=== PATIENT | male | born 1950 | race Two or more races ===

== ENCOUNTER → 2024-05-03 | Outpatient (CLI) | payer BC, SELFPAY ==
[2024-05-03 08:29] LABS: Basophils # (Auto) 0.1 Thou/mm3 (0.0-0.2); Basophils % (Auto) 1 % (0-2.5); Eosinophils # (Auto) 0.2 Thou/mm3 (0.0-0.5); Eosinophils % (Auto) 3 % (0-10); Hematocrit 46.7 % (41.0-53.0); Hemoglobin 14.7 g/dL (13.5-16.0); Immature Granulocytes % (Auto) 0 % (0-0); Immature Granulocytes Auto 0.03 Thou/mm3 (0.00-0.00); Lymphocytes # (Auto) 1.1 Thou/mm3 (1.0-4.8); Lymphocytes % (Auto) 15 % (10-50); Mean Corpuscular HGB Conc 31.5 g/dl (31.0-37.0); Mean Corpuscular Hemoglobin 25.8 pg (25.0-35.0); Mean Corpuscular Volume 82 fL (80-100); Monocytes # (Auto) 0.7 Thou/mm3 (0.0-0.8); Monocytes % (Auto) 9 % (0-12); Neutrophils # (Auto) 5.6 Thou/mm3 (1.8-7.7); Neutrophils % (Auto) 73 % (37-80); Nucleated Red Blood Cell % 0 /100 WBC (0); Platelet Count 216 Thou/mm3 (140-440); RDW Standard Deviation 38.9 fL (35.1-43.9); Red Blood Count 5.69 Miln/mm3 (4.50-5.90); White Blood Count 7.7 Thou/mm3 (3.8-10.6)
[2024-05-03 08:40] LABS: Glucose Estimated Average 114 mg/dL (80-131); Hemoglobin A1C 5.6 % Hgb (4.8-6.0)
[2024-05-03 08:54] LABS: Alanine Aminotransferase 23 U/L (10-49); Albumin, Serum 4.6 gm/dL (3.4-4.8); Albumin/Globulin Ratio 2.1 (1.2-2.2); Alkaline Phosphatase 114 U/L (46-116); Anion Gap 5 (7-16); Aspartate Amino Transferase 25 U/L (0-34); BUN/Creatinine Ratio 14 Ratio (12-20); Bilirubin,Total 0.7 mg/dL (0.3-1.2); Blood Urea Nitrogen 17 mg/dL (9-23); Carbon Dioxide 27.7 mMol/L (20.0-31.0); Cardiac Risk Estimate 2.9 RATIO (4.0-6.7); Chloride 108 mMol/L (98-107); Cholesterol 123 mg/dL (132-200); Creatinine (Component) 1.2 mg/dL (0.6-1.3); Globulin 2.2 gm/dL (2.3-3.5); Glucose 101 mg/dL (74-106); HDL Cholesterol 43 mg/dL (40-60); LDL Cholesterol,Calculated 68 mg/dL (0-130); Osmolality,Calculated 282 (275-295); Potassium 5.2 mMol/L (3.4-5.1); Sodium 141 mMol/L (136-145); Thyroid Stimulating Hormone 3.24 uIU/mL (0.55-4.78); Total Protein 6.8 gm/dL (5.7-8.2); Triglycerides 60 mg/dL (30-150); eGFR > 60 See Note
== END | disposition home or self-care (01) ==
LOC: COPL 07:08
PROVIDERS: PCP Specialist; Referring Provider Specialist; Visit Provider Specialist
DX: I25.810 Atherosclerosis of coronary artery bypass graft(s) without angina pectoris (principal); Z51.11 Encounter for antineoplastic chemotherapy
CPT/HCPCS: 36415; 80053; 80061; 83036; 84439; 84443; 85025

== ENCOUNTER 2024-10-28 17:42 | Emergency (ER) | payer BC, SELFPAY ==
--- NOTE | 2024-10-28 17:50 | EKG_ITS ---
[facility] Test Date: 2024-10-28 Pat Name: NAEEM EMMANUEL Department: Room: - Gender: Male [employer]: : 1950 Requested By: ED Temporary Provider Order Number: [id number] Reading MD: ED Temporary Provider Measurements Intervals Lorraine Rate: 61 P: 24 [place]: 161 QRS: 45 QRSD: 89 T: 76 QT: 420 QTc: 426 Interpretive Statements SINUS RHYTHM No previous ECG available for comparison /store/S0/[id number].pdf
--- NOTE | 2024-10-28 17:54 | XR_ITS ---
Examination: PA lateral chest 2 views TECHNIQUE: Upright PA and lateral chest 2 views Date and time: 2024 1812 hours Comparison 01/28/2017 INDICATIONS: Epigastric pain radiating to the days ago. FINDINGS: Normal heart size. CABG Moderate hyperexpansion Left anterior descending coronary artery stent No pneumonia or pulmonary edema Prominent osteopenia IMPRESSION: Moderate hyperexpansion No pneumonia or pulmonary edema
--- NOTE | 2024-10-28 17:55 | PC.NURSE ---
C/O CHEST PAIN SINCE 1300 TODAY AND HX CHEST PAIN
[2024-10-28 18:02] VITALS: BP 153/82; PULSE 62; RESP 17; TEMP 36.7; O2SAT 100; BMI 24.5
[2024-10-28 18:27] VITALS: BP 153/82; PULSE 60; RESP 18; TEMP 36.6; O2SAT 100
--- NOTE | 2024-10-28 18:32 | PD.EDCHEST ---
ED Chest Pain RME/HPI General Chief Complaint: Chest Pain Stated Complaint: CHEST PAIN Time Seen by Provider: 10/28/24 17:53 Arrival date/time: 10/28/24 17:42 RME / HPI RME / HPI narrative: 74-year-old male with history of coronary artery disease presents the emergency department with persistent epigastric pain since around 2 AM. He denies positional pleuritic nature to the pain. He describes as a cramp or ache that radiates to the bilateral lower chest. He ate a edgar for lunch without change in the pain (neither improved or worsen). He denies fevers chills or sweats. He denies nausea vomiting or diarrhea. Related Data Home Medications ?Medication ?Instructions ?Recorded ?Confirmed atorvastatin 40 mg tablet (Lipitor) 80 mg PO HS #0 tabs 07/24/13 lisinopril 10 mg tablet 10 mg PO HS ##0 07/24/13 metoprolol succinate 25 mg 25 mg PO QDAY ##0 07/24/13 tablet,extended release 24 hr (Toprol XL) aspirin 81 mg chewable tablet 81 mg PO QDAY ##0 01/28/17 prasugrel HCl 10 mg tablet 10 mg PO QDAY #0 tabs 01/28/17 (Effient) Allergies Allergy/AdvReac Type Severity Reaction Status Date / Time Sulfa (Sulfonamide Allergy Unknown Verified 01/31/17 08:14 Antibiotics) Review of Systems Review of Systems Systems Reviewed: All systems reviewed, normal except as documented ED Exam Narrative Physical exam: GENERAL APPEARANCE: AxOx4, generally well-appearing, no acute distress. HEENT: NC, AT. MMM. EOMI, clear conjunctiva, oropharynx clear. NECK: Supple without lymphadenopathy. No stiffness or restricted ROM. HEART: Normal rate and regular rhythm, normal S1/S1, no m/r/g LUNGS: CTAB, moving air well. No crackles or wheezes are heard. ABDOMEN: Soft, nontender, nondistended with good bowel sounds heard. BACK: No midline C/T/L spine pain or deformity, No CVAT, no obvious deformity. EXTREMITIES: Without cyanosis, clubbing or edema. MUSCULOSKELETAL: FROM of all major joints, no chest tenderness NEUROLOGICAL: Grossly nonfocal. Alert and oriented, moving all 4 extremities. CN not formally tested but appear grossly intact. Observed to ambulate with normal gait. Skin: Warm and dry without any rash. Course Quality Measures none Orders Category Date Time Status EKG (ED ONLY) *Do not use* NOW Care 10/28/24 17:50 Completed EKG (ED Only) Stat Exams 10/28/24 17:50 Draft XR chest 2V Stat Exams 10/28/24 17:54 Completed BNP [B-Type Natriuretic Peptide] Stat Lab 10/28/24 18:29 Ordered CBC Stat Lab 10/28/24 17:55 Completed CMP [Comprehensive Metabolic Panel] Stat Lab 10/28/24 17:55 Completed Free T4 (Free Thyroxine) Stat Lab 10/28/24 18:29 Ordered Lipase Stat Lab 10/28/24 17:55 Completed Magnesium Stat Lab 10/28/24 18:29 Ordered TSH [Thyroid Stimulating Hormone] Stat Lab 10/28/24 18:29 Ordered Troponin I Stat Lab 10/28/24 17:55 Completed Troponin I Stat Lab 10/28/24 18:29 Ordered Aspirin Chew Med 10/28/24 18:25 Discontinued 324 mg PO X1 ONE Nitroglycerin [Nitrostat 1/150] Med 10/28/24 18:25 Discontinued 0.4 mg SL X1 ONE Vital Signs Vital signs: Vital Signs Temperature 98.1 F 10/28/24 18:02 Pulse Rate 62 10/28/24 18:02 Respiratory Rate 17 10/28/24 18:02 Blood Pressure 153/82 H 10/28/24 18:02 Pulse Oximetry (%) 100 10/28/24 18:02 Oxygen Delivery Method Room Air 10/28/24 18:02 SpO2 100% on room air, patient is not hypoxic Chest Pain MDM Narrative MDM Narrative:: 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 Exam is otherwise benign. Cardiac workup and upper abdominal workup has been initiated and patient has been signed off to the oncoming provider pending results and final disposition. Patient data External records reviewed:: [facility] previous records Clinical information provided by:: patient Social determinants that could affect healthcare access:: none Patient has the following chronic illnesses:: Coronary artery disease How is presenting disease/condition affected by chronic disease/condition?: exacerbated by Evaluation data The following diagnostics were reviewed and interpreted by me:: other (specify) Lab and/or radiology exams considered but not ordered:: As per narrative Interpretation Summary: As per narrative Medications / Prescriptions Medications or Prescriptions considered but not ordered:: As per narrative Medication administrations:: Medication Administration History Discontinued Medications Aspirin (Aspirin 81 Mg Chew) 324 mg PO X1 ONE Stop: 10/28/24 18:26 Nitroglycerin (Nitroglycerin 0.4 Mg Subl Btl #25) 0.4 mg SL X1 ONE Stop: 10/28/24 18:26 Above Consultations Consultation(s) initiated? (list below): No Diagnosis Chest Pain Differential Diagnosis: stable angina, atypical chest pain, st elevation myocardial infarction, chest pain and biliary colic Most likely diagnosis given after review of the tests above:: Workup pending Admission Indicated Admission indicated?: not indicated Explain why admission is indicated or not indicated:: Workup pending Admission Request Was there a request for admission?: No Admission Attestation Admission request attestation: Workup pending Disposition Plan Disposition Plan: other (specify) (Workup pending) Discharge Plan Plan Discharge Disposition comment: Patient is stable condition on signout Prescriptions/Referrals Prescriptions/Med Rec: No Action atorvastatin [Lipitor] 40 MG tablet 80 mg PO HS Qty: 0 lisinopril 10 MG tablet 10 mg PO HS Qty: 0 metoprolol succinate [Toprol XL] 25 MG tablet extended release 24 hr 25 mg PO QDAY Qty: 0 prasugrel HCl [Effient] 10 MG tablet 10 mg PO QDAY Qty: 0 aspirin 81 MG tablet,chewable 81 mg PO QDAY Qty: 0 Referrals: No Primary/Family,Physician [Primary Care Provider] - In 1 week Problem List Clinical Impression: Epigastric cramping, Coronary artery disease Patient/Caregiver Discharge Instructions Print Language: Chinese
--- NOTE | 2024-10-28 18:33 | PD.EDADDENDU ---
Emergency Room Addendum <Pricilla Lawson - Last Filed: 10/28/24 23:20> Addendum Narrative: I took over the care from Dr. Moss at 6 PM on 10/28/2024, see his notes for complete H&P and ED course. I was asked to take over the patient pending work-up. I reviewed all diagnostic test results. My interpretation of the EKG is sinus rhythm with no acute ST-T changes. My interpretation of the chest x-ray is unremarkable. My review of the US gallbladder report is cholelithiasis. My review of the CT abdomen pelvis report is acute calculus cholecystitis. Blood tests are remarkable for WBC 11.4, Total Bilirubin 1.8, AST 78, ALT 54, Alkaline Phosphatase 117. At this point, diagnoses include cholelithiasis. Treatment here included NS, Protonix, Nitroglycein, Aspirin, and Pepcid. Significant improvement noted. Based on my best medical judgment, made decision no further evaluation or treatment indicated at this time. Patient understands and agrees to the discharge instructions customized and printed, see below. Discharge Instructions from Dr. Tamayo printed for you: 1. After extensive evaluation, there is no life-threatening condition. Such as heart attack. 2. The ultrasound showed cholelithiasis and CT scan showed cholecystitis and signs of cystitis. 3. As you requested, urinalysis was not performed, we did not pursue admission/surgery here, and no medications were prescribed. 4. See a private doctor on 10/29/2024 for recheck and further care. Ask to review all test results and official radiology reports, to make sure you receive all necessary follow-ups and monitoring. To make sure there is no serious underlying heart condition, ask to help you get more tests for your heart that cannot be done here in the ER. Such as Holter Monitor (cardiac monitoring at home from a day to even a month), heart stress test (on treadmill or with medication), echocardiogram (imaging of your heart structures), heart catherization (checking for blockages in your heart arteries), and a referral to see a Senior Treasury Consultant. Ask for help seeing a surgeon for possible elective cholecystectomy. 5. Seek immediate medical care with worsening or with any concerns. Drake Tamayo MD <Drake Tamayo MD - Last Filed: 10/28/24 23:24> Addendum Narrative: I took over the care from Dr. Moss at 6 PM on 10/28/2024, see his notes for complete H&P and ED course. I reviewed all diagnostic test results. My interpretation of the EKG is sinus rhythm with no acute ST-T changes. My interpretation of the chest x-ray is unremarkable. My review of the US gallbladder report is cholelithiasis. My review of the CT abdomen pelvis report is acute calculus cholecystitis. Blood tests are remarkable for WBC 11.4, Total Bilirubin 1.8, AST 78, ALT 54, Alkaline Phosphatase 117. At this point, diagnoses include cholelithiasis. Treatment here included NS, Protonix, Nitroglycein, Aspirin, and Pepcid. Significant improvement noted. Patient declined giving urine specimen for urinalysis, pursuing admission/surgery here, and medications for home. Based on my best medical judgment, made decision no further evaluation or treatment indicated at this time. Patient understands and agrees to the discharge instructions customized and printed, see below. Discharge Instructions from Dr. Tamayo printed for you: 1. After extensive evaluation, there is no life-threatening condition. Such as heart attack. 2. The ultrasound showed cholelithiasis and CT scan showed cholecystitis and signs of cystitis. 3. As you requested, urinalysis was not performed, we did not pursue admission/surgery here, and no medications were prescribed. 4. See a private doctor on 10/29/2024 for recheck and further care. Ask to review all test results and official radiology reports, to make sure you receive all necessary follow-ups and monitoring. To make sure there is no serious underlying heart condition, ask to help you get more tests for your heart that cannot be done here in the ER. Such as Holter Monitor (cardiac monitoring at home from a day to even a month), heart stress test (on treadmill or with medication), echocardiogram (imaging of your heart structures), heart catherization (checking for blockages in your heart arteries), and a referral to see a Senior Treasury Consultant. Ask for help seeing a surgeon for possible elective cholecystectomy. 5. Seek immediate medical care with worsening or with any concerns. Drake Tamayo MD
[2024-10-28 18:34] LABS: Basophils # (Auto) 0.1 Thou/mm3 (0.0-0.2); Basophils % (Auto) 0 % (0-2.5); Eosinophils % (Auto) 0 % (0-10); Hematocrit 44.7 % (41.0-53.0); Immature Granulocytes % (Auto) 0 % (0-0); Immature Granulocytes Auto 0.05 Thou/mm3 (0.00-0.00); Lymphocytes # (Auto) 0.6 Thou/mm3 (1.0-4.8); Lymphocytes % (Auto) 5 % (10-50); Mean Corpuscular HGB Conc 33.6 g/dl (31.0-37.0); Mean Corpuscular Hemoglobin 26.3 pg (25.0-35.0); Mean Corpuscular Volume 78 fL (80-100); Monocytes # (Auto) 0.5 Thou/mm3 (0.0-0.8); Monocytes % (Auto) 5 % (0-12); Neutrophils # (Auto) 10.2 Thou/mm3 (1.8-7.7); Neutrophils % (Auto) 89 % (37-80); Nucleated Red Blood Cell % 0 /100 WBC (0); Platelet Count 193 Thou/mm3 (140-440); RDW Standard Deviation 36.4 fL (35.1-43.9); White Blood Count 11.4 Thou/mm3 (3.8-10.6)
[2024-10-28 18:46] LABS: Alanine Aminotransferase 54 U/L (10-49); Albumin, Serum 4.3 gm/dL (3.4-4.8); Albumin/Globulin Ratio 1.8 (1.2-2.2); Alkaline Phosphatase 117 U/L (46-116); Anion Gap 13 (7-16); Aspartate Amino Transferase 78 U/L (0-34); BUN/Creatinine Ratio 14 Ratio (12-20); Bilirubin,Total 1.8 mg/dL (0.3-1.2); Blood Urea Nitrogen 14 mg/dL (9-23); Calcium 9.4 mg/dL (8.3-10.6); Calcium (Corrected) 9.4 mg/dL (8.5-10.1); Carbon Dioxide 26.4 mMol/L (20.0-31.0); Chloride 103 mMol/L (98-107); Estimated Creatinine Clearance 50.1 mL/min (>60); Globulin 2.4 gm/dL (2.3-3.5); Glucose 116 mg/dL (74-106); Lipase 52 U/L (12-53); Osmolality,Calculated 284 (275-295); Sodium 142 mMol/L (136-145); Total Protein 6.7 gm/dL (5.7-8.2); Troponin I < 0.002 ng/mL (0.0-0.045); eGFR > 60 See Note
[2024-10-28 19:12] LABS: Free T4 (Free Thyroxine) 1.39 ng/dL (0.89-1.76); Magnesium 1.9 mg/dL (1.6-2.6); Thyroid Stimulating Hormone 3.08 uIU/mL (0.55-4.78)
[2024-10-28 19:37] LABS: B-Type Natriuretic Peptide 38 pg/mL (0-100)
--- NOTE | 2024-10-28 20:02 | PC.NURSE ---
Assumed care of pt. Pt states he has abdominal pain, denies chest pain. Pt refused nitro/asa. Informed MD Tamayo. to see pt.
--- NOTE | 2024-10-28 20:23 | XR_ITS ---
Examination: Abdomen sonogram, Limited Date and time of exam: October 28, 20240 hours INDICATIONS: Right upper abdominal pain beginning today Technique: Real-time anders scale transabdominal sonographic images of the upper abdomen obtained. Findings: Multiple gallstones Normal gallbladder wall Common bile duct 0.7 cm no stones Pancreatic head to 0.2 cm Liver 11.2 cm fatty infiltration Normal hepatopedal portal venous flow Patent IVC IMPRESSION: Cholelithiasis, negative for cholecystitis
--- NOTE | 2024-10-28 20:24 | XR_ITS ---
Examination: CT abdomen with intravenous contrast CT pelvis with intravenous contrast 2-D coronal reconstructions 2-D sagittal reconstructions Date and time of exam:October 28, 2024 2154 hours INDICATIONS: Onset abdominal pain today. CTDI: vol (mGy) 7 DLP: (mGycm) 437 Technique: Multiple axial sections of the abdomen and pelvis have been obtained. 64 slice high-resolution scanner used. 3 mm axial sections have been obtained, post intravenous injection 60 cc [id number] 2-D sagittal, coronal reconstructions obtained. Low dose protocols were performed. One or more of the following dose reduction techniques were used; automated exposure control, adjustment of the mA and/or KV according to patient size, use of iterative reconstruction technique. Findings: No focal liver or splenic lesion Gallbladder wall appears thickened, gallstones No pancreatic or adrenal mass Aorta normal size No hydronephrosis No bowel obstruction No renal or ureteral calculi No diverticulitis No pericecal inflammatory change Moderate prostatomegaly Urinary bladder wall thickening up to 4 mm IMPRESSION: Acute calculus cholecystitis Mild urinary bladder wall thickening, consider early urinary tract outflow obstruction secondary to prostatomegaly, cystitis
[2024-10-28] MEDS: PANTOPRAZOLE INJ 40 MG VIAL IVP (20:48)
[2024-10-28] MEDS: SODIUM CHLORIDE 0.9% 1000 ML 1,000 ML 999 ML IV (20:49)
[2024-10-28] MEDS: FAMOTIDINE INJ 10 MG/ML VIAL 2 ML 20 MG IVP (20:49)
[2024-10-28 20:55] VITALS: BP 181/71; PULSE 55; RESP 16; O2SAT 98
[2024-10-28 21:37] VITALS: BP 134/70; PULSE 48; RESP 16; TEMP 36.4; O2SAT 96
--- NOTE | 2024-10-28 21:52 | PC.NURSE ---
Pt to CT.
[2024-10-28 23:27] VITALS: BP 137/65; PULSE 58; RESP 20; TEMP 36.8; O2SAT 98
== END 2024-10-28 23:28 | disposition home or self-care (01) ==
PROVIDERS: Emergency Medicine; Emergency Provider Emergency Medicine
DX: K80.00 Calculus of gallbladder with acute cholecystitis without obstruction (principal); I25.10 Atherosclerotic heart disease of native coronary artery without angina pectoris
CPT/HCPCS: 36415; 71046; 74177; 76705; 80053; 81001; 83690; 83735; 83880; 84439; 84443; 84484; 85025; 93005; 96361; 96374; 96375; 99285; A4649; J2470; J3490; J7030; Q9967

== ENCOUNTER → 2024-11-17 | Outpatient (CLI) | payer BC, SELFPAY ==
[2024-11-17 07:38] LABS: Alanine Aminotransferase 26 U/L (10-49); Albumin, Serum 4.5 gm/dL (3.4-4.8); Alkaline Phosphatase 118 U/L (46-116); Aspartate Amino Transferase 30 U/L (0-34); Bilirubin,Direct 0.3 mg/dL (0.0-0.3); Bilirubin,Total 0.9 mg/dL (0.3-1.2); Cardiac Risk Estimate 2.5 RATIO (4.0-6.7); Cholesterol 112 mg/dL (132-200); HDL Cholesterol 44 mg/dL (40-60); LDL Cholesterol,Calculated 52 mg/dL (0-130); Total Protein 6.9 gm/dL (5.7-8.2); Triglycerides 81 mg/dL (30-150)
== END | disposition home or self-care (01) ==
PROVIDERS: PCP Specialist; Referring Provider Internal Medicine Cardiovascular Disease; Visit Provider Internal Medicine Cardiovascular Disease
DX: I25.118 Atherosclerotic heart disease of native coronary artery with other forms of angina pectoris (principal); Z95.1 Presence of aortocoronary bypass graft; E78.01 Familial hypercholesterolemia
CPT/HCPCS: 36415; 80061; 80076

== ENCOUNTER 2024-11-18 06:00 | Day surgery (SDC) | payer BC, SELFPAY ==
[2024-11-17 06:24] VITALS: BMI 24.5
[2024-11-17 07:23] LABS: Basophils # (Auto) 0.1 Thou/mm3 (0.0-0.2); Basophils % (Auto) 1 % (0-2.5); Eosinophils # (Auto) 0.2 Thou/mm3 (0.0-0.5); Eosinophils % (Auto) 4 % (0-10); Hematocrit 44.3 % (41.0-53.0); Hemoglobin 14.7 g/dL (13.5-16.0); Immature Granulocytes % (Auto) 0 % (0-0); Immature Granulocytes Auto 0.03 Thou/mm3 (0.00-0.00); Lymphocytes # (Auto) 1.1 Thou/mm3 (1.0-4.8); Lymphocytes % (Auto) 17 % (10-50); Mean Corpuscular HGB Conc 33.2 g/dl (31.0-37.0); Mean Corpuscular Hemoglobin 26.5 pg (25.0-35.0); Mean Corpuscular Volume 80 fL (80-100); Monocytes # (Auto) 0.6 Thou/mm3 (0.0-0.8); Monocytes % (Auto) 9 % (0-12); Neutrophils # (Auto) 4.8 Thou/mm3 (1.8-7.7); Neutrophils % (Auto) 70 % (37-80); Nucleated Red Blood Cell % 0 /100 WBC (0); Platelet Count 210 Thou/mm3 (140-440); RDW Standard Deviation 36.5 fL (35.1-43.9); Red Blood Count 5.54 Miln/mm3 (4.50-5.90); White Blood Count 6.9 Thou/mm3 (3.8-10.6)
[2024-11-17 07:38] LABS: Alanine Aminotransferase 26 U/L (10-49); Albumin, Serum 4.6 gm/dL (3.4-4.8); Alkaline Phosphatase 119 U/L (46-116); Anion Gap 5 (7-16); Aspartate Amino Transferase 31 U/L (0-34); BUN/Creatinine Ratio 12 Ratio (12-20); Bilirubin,Total 0.9 mg/dL (0.3-1.2); Blood Urea Nitrogen 12 mg/dL (9-23); Calcium 9.8 mg/dL (8.3-10.6); Calcium (Corrected) 9.8 mg/dL (8.5-10.1); Carbon Dioxide 30.3 mMol/L (20.0-31.0); Chloride 105 mMol/L (98-107); Estimated Creatinine Clearance 50.1 mL/min (>60); Globulin 2.3 gm/dL (2.3-3.5); Glucose 108 mg/dL (74-106); Osmolality,Calculated 280 (275-295); Potassium 4.6 mMol/L (3.4-5.1); Sodium 140 mMol/L (136-145); Total Protein 6.9 gm/dL (5.7-8.2); eGFR > 60 See Note
[2024-11-17 07:43] LABS: Prothrombin Time 11.3 Seconds (9.0-12.2)
[2024-11-18] VITALS (10 sets, daily range): BP systolic 131–167; BP diastolic 45–75; PULSE 50–65; RESP 12–20; TEMP 36.2–36.4; O2SAT 97–100; BMI 24.7
[2024-11-18] MEDS: RINGERS LACTATED 1000 ML 1,000 ML 20 ML IV (07:14)
--- NOTE | 2024-11-18 08:27 | PD.SUROPNT ---
Date of Procedure 11/18/24 Pre Op Diagnosis Symptomatic cholelithiasis Post Op Diagnosis Cholelithiasis with cholecystitis Procedure Laparoscopic cholecystectomy Findings Moderately distended gallbladder with multiple gallstones and chronic cholecystitis. Epigastric adhesions from previous hernia operation Procedure Description Patient was brought into the operating room in supine position. After administration of general endotracheal anesthesia abdomen was prepped and draped in standard surgical manner. A Veress needle was inserted through the umbilicus and pneumoperitoneum was obtained up to 15 mmHg. The Veress needle was then removed, a 5 mm infraumbilical incision was made and the 5mm trocar was inserted. Laparoscopic camera was placed. Patient was noted to have omental and loops of small bowel adherent in epigastric area from previous hernia operation. Under direct visualization a laparoscopic camera a 10 mm trocar was placed in subxiphoid away from the adhesions and two 5 mm trocars placed in right upper quadrant. The gallbladder was identified and was noted to be moderately distended with multiple gallstones and chronic cholecystitis. It was retracted cephalad and laterally. Dissection started near the infundibulum of gallbladder where cystic duct and gallbladder junction clearly identified. The cystic duct was circumferentially dissected off the peritoneum and surrounding inflammatory tissue. The critical view of safety was clearly demonstrated. Cystic duct was then divided between 2 endoclips proximally and one distally. The cystic artery was similarly dissected and divided. The gallbladder was then from the liver bed using electrocautery. The gallbladder was then placed inside an Endo Catch and removed from the abdomen utilizing subxiphoid trocar site. The area was copiously and thoroughly washed and irrigated, all the fluid was suctioned and the suction fluid returned clear. Hemostasis achieved using electrocautery. Endoclips noted be in place and intact without any bleeding or any leakage. Hemostasis was adequate and satisfactory. The subxiphoid trocar sites fascial defect was closed with 0 Vicryl using Endo Closure device. Instruments and trocars removed, pneumoperitoneum was evacuated and the incisions closed with 4-0 Monocryl in subcuticular fashion. Instrument needle and sponge counts were all reported to be correct X2. Patient tolerated the procedure well, was extubated, breathing spontaneously and without difficulty and was transferred to postanesthesia care in stable condition. Anesthesia GETA and local Pathology / specimen Other (Gallbladder and contents) Estimated Blood Loss 10 Condition Stable Disposition PACU Surgeon Kanchan Rick MD Surgical Staff Operation Date: 11/18/24 07:30 Case Staff Anesthesiologist: Tru Aguilera RN First Assistant: Jackie Scruggs
--- NOTE | 2024-11-18 08:31 | SUR.PHASEI ---
pt received from OR in recovery bay 1. pt asleep but responds to voice, breathing unlabored on oxymask 8l. v/s stable. pt dressing to abd derambond x4 cdi. report received from Valentina HAHN and Dr. Aguilera.
--- NOTE | 2024-11-18 09:15 | SUR.PHASEII ---
pt able to tolerate oral fluids without difficulty swallowing or nausea/vomiting.
[2024-11-18] MEDS: ACETAMINOPHEN 500 MG TABLET 1000 MG PO (10:36)
--- NOTE | 2024-11-18 10:38 | SUR.PHASEII ---
pt awake and alert, breathing unlabored on room air. v/s stable. pt dressing to abd dermabond x4 ports cdi. pt able to ambulate to wheelchair with steady gait. d/c instructions given with Lizbet and Fareen daughter in room, all questions answered. pt d/c via wheelchair with all belongings.
== END 2024-11-18 10:38 | disposition home or self-care (01) ==
PROVIDERS: PCP Specialist; Referring Provider Surgery; Visit Provider Surgery
PROC: 0FT44ZZ Resection of Gallbladder, Percutaneous Endoscopic Approach (ICD-10-PCS; CPT 47562; principal; 2024-11-18 07:30)
DX: K80.10 Calculus of gallbladder with chronic cholecystitis without obstruction (principal)
CPT/HCPCS: 47562; 36415; 80053; 85025; 85610; A4217; A4649; J0694; J2250; J2704; J3010; J3490; J7120; A9270